=== PATIENT | female | born 1975 | race Two or more races ===

== ENCOUNTER 2018-03-12 11:02 | Outpatient (CLI) | payer OTHER ==
[~2018-03-12 11:02] MED LIST: DOXYCYCLINE HY100 MG PO; TYLENOL-CODEINE1 TAB PO
== END 2018-03-12 11:10 | disposition home or self-care (01) ==
LOC: SONOGRAMA 11:02 → MAMO-SONO 11:15
DX: N84.1 Polyp of cervix uteri (principal)